=== PATIENT | female | born 1975 | race Caucasian/White ===

== ENCOUNTER 2019-12-22 11:41 | Emergency (ER) | payer OTHER ==
--- NOTE | 2019-12-22 12:17 | ED Physician Documentation ---
PD HPI FOCAL NEURO - Stated complaint Stated Complaint: BLURRED VISION - Chief complaint Chief Complaint: Neuro - History obtained from History obtained from: Patient - Additional information Additional information: 44-year-old woman with history of anxiety, migraines. She was in her usual state of health yesterday, outside in the sun. She first noticed that the right visual field, she thinks in the right eye only was blurry. She is not 100% sure that it was in the right eye only. That lasted about 40 minutes. During that time she developed some word finding difficulty and right arm numbness as well as a panicky sensation. Was followed by a mild headache. She had a mild headache this morning but feels fine now. No history of TIA or stroke. No diabetes or hypertension other than she had gestational diabetes. Review of Systems Ten Systems: 10 systems reviewed and negative Constitutional: denies: Fever Nose: denies: Rhinorrhea / runny nose Cardiac: denies: Chest pain / pressure, Palpitations Respiratory: denies: Dyspnea, Cough PD PAST MEDICAL HISTORY - Allergies Allergies/Adverse Reactions: Allergies Allergy/AdvReac Type Severity Reaction Status Date / Time No Known Drug Allergies Allergy Verified 12/22/19 11:49 PD ED PE NORMAL - Vitals Vital signs reviewed: Yes - General General: Alert and oriented X 3, No acute distress - HEENT HEENT: PERRL, EOMI - Neck Neck: Supple, no meningeal sign, No bony TTP - Cardiac Cardiac: RRR, No murmur - Respiratory Respiratory: No respiratory distress, Clear bilaterally - Abdomen Abdomen: Non tender - Derm Derm: Normal color, Warm and dry - Extremities Extremities: No edema, No calf tenderness / cord - Neuro Neuro: Alert and oriented X 3, client support representative 2-12 intact, No motor deficit, No sensory deficit, Normal speech Eye Opening: Spontaneous Motor: Obeys Commands Verbal: Oriented GCS Score: 15 - Psych Psych: Normal mood, Normal affect NIHSS - Time Time: 12:10 - Level of Consciousness Level of consciousness: (0) Alert, Keenly responsive LOC Questions: (0) Answers both Q's correct LOC Commands: (0) Performs both correctly - Gaze Best Gaze: (0) Normal - Visual Visual: (0) No loss - Facial Palsy Facial Palsy: (0) Normal, symmetrical movement - Motor Arms (both separate) Motor Arm (right): (0) No drift Motor Arm (left): (0) No drift - Motor Legs (both separate) Motor Leg (right): (0) No drift Motor Leg (left): (0) No drift - Limb Ataxia Limb Ataxia: (0) Absent - Sensory Sensory: (0) Normal - Best Language Best Language: (0) No aphasia - Dysarthria Dysarthria: (0) Normal - Extinction and Inattention (formally neg Extinction and inattention: (0) No abnormality - Total Score/Results Total Score/Result: 0 Results - Vitals Vitals: Vital Signs - 24 hr 12/22/19 11:45 Temperature 36.9 C Heart Rate 85 Respiratory 16 Rate Blood Pressure 150/92 H O2 Saturation 100 Oxygen O2 Source Room air - EKG (time done) 1202 Rate: Rate (enter#) (81) Rhythm: NSR Arpin: Normal Intervals: Normal TX QRS: Normal Ischemia: Normal ST segments - Labs Labs: Laboratory Tests 12/22/19 12/22/19 12/22/19 11:57 12:20 12:20 WBC 6.9 RBC 4.60 Hgb 14.5 Hct 41.5 MCV 90.2 MCH 31.5 H MCHC 34.9 RDW 12.0 Plt Count 197 MPV 10.2 Neut # (Auto) 3.6 Lymph # (Auto) 2.7 [place] # (Auto) 0.5 Eos # (Auto) 0.1 Baso # (Auto) 0.0 Absolute Nucleated RBC 0.00 Nucleated RBC % 0.0 Sodium 139 Potassium 3.9 Chloride 101 Carbon Dioxide 25 Anion Gap 13.0 BUN 9 Creatinine 0.7 Estimated GFR (MDRD) 91 Glucose 140 H POC Whole Bld Glucose 137 H Calcium 9.3 Total Bilirubin 0.9 AST 26 ALT 32 Alkaline Phosphatase 54 Total Protein 7.2 Albumin 4.2 Globulin 3.0 Albumin/Globulin Ratio 1.4 Lipase 30 Ur Specific [place] Urine HCG, Qual 12/22/19 12:24 WBC RBC Hgb Hct MCV MCH MCHC RDW Plt Count MPV Neut # (Auto) Lymph # (Auto) [place] # (Auto) Eos # (Auto) Baso # (Auto) Absolute Nucleated RBC Nucleated RBC % Sodium Potassium Chloride Carbon Dioxide Anion Gap BUN Creatinine Estimated GFR (MDRD) Glucose POC Whole Bld Glucose Calcium Total Bilirubin AST ALT Alkaline Phosphatase Total Protein Albumin Globulin Albumin/Globulin Ratio Lipase Ur Specific [place] 1.010 Urine HCG, Qual NEGATIVE PD MEDICAL DECISION MAKING - ED course ED course: Seems most consistent with ocular migraine but it is a little concerning that she thinks it was only in one eye. It does not seem like amaurosis fugax. TIA is considered, less likely given her age and normal CTA of the head and neck. Departure - Departure Disposition: 01 Home, Self Care Clinical Impression: Ocular migraine Condition: Good Record reviewed to determine appropriate education?: Yes Instructions: ED Transient Ischemic Attack, ED Headache Migraine Comments: As discussed, this seems most closely match to an ocular migraine, less likely would be TIA or ocular issue primarily. I do recommend following up with your marketing account manager or certified lactation educator for a dilated eye exam. Take a baby aspirin a day for a month. Return if worsening. Follow-up with your doctor routinely for recheck of mildly elevated blood sugars.
[2019-12-22] MEDS ORDERED: IOVERSOL 320 100 ML VIAL IVP ONE ×2 (12:29→16:00)
[2019-12-22 12:35] LABS: BASOPHILS % (AUTO) 0.6 %; EOSINOPHILS # (AUTO) 0.1 10^3/uL (0.0-0.7); EOSINOPHILS % (AUTO) 1.2 %; HGB - HEMOGLOBIN 14.5 g/dL (12.0-16.0); LYMPHOCYTES # (AUTO) 2.7 10^3/uL (1.5-3.5); LYMPHOCYTES % (AUTO) 38.8 %; MEAN CORPUSCULAR HEMOGLOBIN 31.5 pg (27.0-31.0); MEAN CORPUSCULAR HGB CONC 34.9 g/dL (32.0-36.0); MEAN CORPUSCULAR VOLUME 90.2 fL (81.0-99.0); MEAN PLATELET VOLUME 10.2 fL (7.9-10.8); MONOCYTES # (AUTO) 0.5 10^3/uL (0.0-1.0); NEUTROPHILS # (AUTO) 3.6 10^3/uL (1.5-6.6); PLT - PLATELET COUNT 197 10^3/uL (130-450); WHITE BLOOD COUNT 6.9 x10^3/uL (4.8-10.8)
[2019-12-22 12:39] LABS: HCG UR QUAL NEGATIVE
[2019-12-22 12:49] LABS: ALBUMIN 4.2 g/dL (3.2-5.5); ALBUMIN/GLOBULIN RATIO 1.4 (1.0-2.2); BILIRUBIN,TOTAL 0.9 mg/dL (0.2-1.0); CALCIUM 9.3 mg/dL (8.5-10.3); CREATININE 0.7 mg/dL (0.4-1.0); TOTAL PROTEIN 7.2 g/dL (6.7-8.2)
--- NOTE | 2019-12-22 13:29 | CT Report ---
PROCEDURE: ANGIO HEAD W/WO INDICATIONS: R hemianopsia, and R arm numb, transient CONTRAST: IV CONTRAST: Optiray 320 ml: 80 PO CONTRAST: *NO PO CONTRAST TECHNIQUE: Precontrast 4.5 mm thick angled axial sections acquired from the foramen magnum to the vertex. Afte r the administration of intravenous contrast, 1 mm thick sections acquired through the [place] of [place] is. Postcontrast 4.5 mm thick sections then re-acquired from the foramen magnum to the vertex. 3-di mensional wcontzp-uheyzbhze-kxcowgacaq (MIP) and/or volume rendering reformats were acquired of the c entral intracranial vasculature. For radiation dose reduction, the following was used: automated ex posure control, adjustment of mA and/or kV according to patient size. COMPARISON: Correlation is made with the accompanying neck MRI angiogram, 12/22/2019. FINDINGS: Image quality: Limited by bolus timing with venous contamination. Motion artifact is noted. Anterior circulation: Intracranial internal carotid arteries are normal in size and flow. The flow within the paired anterior cerebral arteries is normal and symmetric. The flow within the middle cer ebral arteries is normal and symmetric. The anterior communicating artery is seen. No aneurysms are seen. Posterior circulation: Visualized portions of the vertebral arteries demonstrate normal caliber, and join to form a normal appearing basilar artery. Flow within the posterior cerebral arteries is norm al and symmetric. No aneurysms are seen. CSF spaces: Ventricles are normal in size and shape. Basal cisterns are patent. No extra-axial flu id collections. Brain: No midline shift. No intracranial bleeds or masses. Gaines-white matter interface appears int act. Skull and face: Calvarium and facial bones appear intact, without suspicious lesions. Sinuses: Visualized sinuses and mastoids are clear. IMPRESSION: No significant intracranial abnormality is seen. To the limits of this study, no significant intracranial arterial abnormality is detected. Reviewed by: Pedro Browne MD on 12/22/2019 12:28 PM [place] Approved by: Pedro Browne MD on 12/22/2019 12:28 PM [facility] Station ID: [id number]
--- NOTE | 2019-12-22 13:32 | CT Report ---
PROCEDURE: ANGIO NECK W INDICATIONS: R hemianopsia and R arm numb, transient CONTRAST: IV CONTRAST: Optiray 320 ml: 80 PO CONTRAST: *NO PO CONTRAST TECHNIQUE: After the administration of intravenous contrast, 1.5 mm axial sections acquired from the aortic arch to the [place] of [place]. Coronal 3-D maximum intensity projection (MIP) and/or volume rendering ref ormats were then performed. For radiation dose reduction, the following was used: automated exposur e control, adjustment of mA and/or kV according to patient size. COMPARISON: Correlation is made with the accompanying brain CT angiogram, 12/22/2019. FINDINGS: Image quality: Mildly limited by bolus timing, with venous contamination. Carotid system: Incidental note is made of a common trunk off of the aorta of the right brachiocepha lic artery and the left common carotid artery (bovine type aortic arch). This is considered to be a d evelopmental variant of typically no clinical consequence. The origins of the common carotid arteri es appear patent. The common carotid arteries demonstrate normal calibers and courses. The bifurcat ion regions appear normal bilaterally. The internal carotid arteries demonstrate normal caliber and course. Posterior circulation: The origins of the vertebral arteries appear patent. The more superior porti ons of the vertebral arteries demonstrate normal course and caliber. They join to form a normal appe aring basilar artery. Soft tissues: Visualized neck soft tissues demonstrate no suspicious abnormalities. The thyroid gla nd is normal in size. Bones: No suspicious bony lesions. Visualized cervical spine appears normally aligned. Moderate l ower cervical spine degenerative change is seen, with moderate disc space narrowing at C5-C6, with po steriorly directed endplate osteophytes and bridging anterior osteophytes. Mild to moderate disc spac e narrowing is seen at C6-C7, with partially bridging anterior osteophytes and posterior directed end plate osteophytes. Milder degenerative changes are seen elsewhere. IMPRESSION: No hemodynamically significant stenosis can be seen within the arteries of the neck. No findings of dissection can be seen. Incidental note is made of: Moderate lower cervical spine degenerative change. Bovine type aortic branching pattern The estimate of stenosis included in the report of the imaging study was calculated using the NASCET method Reviewed by: Pedro Browne MD on 12/22/2019 12:31 PM [facility] Approved by: Pedro Browne MD on 12/22/2019 12:31 PM [facility] Station ID: [id number]
[2019-12-22 13:45] VITALS: BP 129/85
== END 2019-12-22 13:51 | disposition home or self-care (01) ==
LOC: ED 11:41
DX: G43.B0 Ophthalmoplegic migraine, not intractable (principal)
CPT/HCPCS: 36415; 70496; 70498; 80053; 81025; 83690; 85025; 93005; 99284; Q9967; 84484

== ENCOUNTER 2020-02-02 14:51 | Outpatient (CLI) | payer OTHER ==
--- NOTE | 2020-02-03 14:59 | Ultrasound Report ---
PROCEDURE: Pelvic w/Transvaginal INDICATIONS: UTERINE FIBROIDS TECHNIQUE: Real-time scanning was performed of the pelvic organs, with image documentation. Additional endovagi nal scanning was necessary due to incomplete visualization of the adnexal and endometrial structures by transabdominal scanning. COMPARISON: None. FINDINGS: Transabdominal scanning: Limited scanning through the kidneys shows no hydronephrosis. No pathologi c free abdominal or pelvic fluid. Endovaginal scanning: Uterus: Uterus is borderline enlarged in size at 9.7 x 5.3 x 6.6 cm. The endometrium measures 8 mm in combined thickness. There is a right lateral subserosal focus of heterogeneous echogenicity measu ring 8 x 5.4 x 6.0 cm. A similar focus in the left anterior intramural region is identified measuring 2.1 x 1.7 x 1.4 cm. Ovaries: Right ovary measures 2.7 x 2.1 x 2.47 m, by 7.3 cc. Left ovary measures 1.9 x 2.1 x 3.3 cm, volume 7.1 cc. Prominent follicle versus small cyst is noted within the right ovary measuring 1.7 x 1.2 x 1.7 cm. IMPRESSION: 1. Multiple foci of heterogeneous echogenicity within the uterus suggestive of fibroids. Reviewed by: Gilda Mercado MD on 02/03/2020 2:58 PM PST Approved by: Gilda Mercado MD on 02/03/2020 2:58 PM PST Station ID: [id number]
== END 2020-02-02 14:52 | disposition home or self-care (01) ==
LOC: DI 14:51
PROVIDERS: ATTEND Obstetrics & Gynecology
DX: D25.1 Intramural leiomyoma of uterus (principal); D25.2 Subserosal leiomyoma of uterus; N83.201 Unspecified ovarian cyst, right side

== ENCOUNTER 2021-01-18 10:16 | Emergency (ER) | payer BC, OTHER ==
[2021-01-18 10:49] LABS: BILIRUBIN,URINE NEGATIVE (NEGATIVE); GLUCOSE, URINE (UA) NEGATIVE (NEGATIVE); KETONES,URINE (UA) NEGATIVE (NEGATIVE); LEUKOCYTE ESTERASE, URINE NEGATIVE (NEGATIVE); NITRITE,URINE NEGATIVE (NEGATIVE); OCCULT BLOOD,URINE LARGE (NEGATIVE); PROTEIN,URINE NEGATIVE (NEGATIVE); UROBILINOGEN,URINE 0.2 (NORMAL) E.U./dL (NORMAL)
[2021-01-18 10:51] LABS: CLARITY,URINE CLEAR (CLEAR); HCG UR QUAL NEGATIVE
[2021-01-18 10:57] LABS: BASOPHILS # (AUTO) 0.1 10^3/uL (0.0-0.1); BASOPHILS % (AUTO) 0.5 %; EOSINOPHILS % (AUTO) 0.3 %; HCT - HEMATOCRIT 42.6 % (37.0-47.0); HGB - HEMOGLOBIN 14.9 g/dL (12.0-16.0); LYMPHOCYTES # (AUTO) 1.4 10^3/uL (1.5-3.5); LYMPHOCYTES % (AUTO) 11.3 %; MEAN CORPUSCULAR HEMOGLOBIN 31.2 pg (27.0-31.0); MEAN CORPUSCULAR VOLUME 89.3 fL (81.0-99.0); MEAN PLATELET VOLUME 9.8 fL (7.9-10.8); MONOCYTES # (AUTO) 0.7 10^3/uL (0.0-1.0); MONOCYTES % (AUTO) 5.6 %; NEUTROPHILS # (AUTO) 10.4 10^3/uL (1.5-6.6); NEUTROPHILS % (AUTO) 81.8 %; PLT - PLATELET COUNT 206 10^3/uL (130-450); RED BLOOD COUNT 4.77 10^6/uL (4.20-5.40); WHITE BLOOD COUNT 12.7 x10^3/uL (4.8-10.8)
[2021-01-18 11:02] LABS: BACTERIA,URINE Rare /HPF (None Seen); SQUAMOUS EPITHELIAL CELL,UR MOD Squamous (<= Few); WBC,URINE 0-3 /HPF (0-5)
[2021-01-18 11:14] LABS: ALBUMIN 4.2 g/dL (3.2-5.5); ALBUMIN/GLOBULIN RATIO 1.2 (1.0-2.2); BILIRUBIN,TOTAL 1.5 mg/dL (0.2-1.0); CALCIUM 8.9 mg/dL (8.5-10.3); CREATININE 0.8 mg/dL (0.4-1.0); POTASSIUM 3.9 mmol/L (3.5-5.0); TOTAL PROTEIN 7.6 g/dL (6.7-8.2)
[2021-01-18 12:11] VITALS: BP 148/99
--- NOTE | 2021-01-18 12:15 | ED Physician Documentation ---
PD HPI ABD PAIN - Stated complaint Stated Complaint: LOW BACK/ABD PAIN - Chief complaint Chief Complaint: Back Pain - History obtained from History obtained from: Patient - Additional information Additional information: This is an otherwise healthy 45-year-old woman who suspect she may be perimenopausal. She also has fibroids and suspect she has PCOS. She has had irregular periods for quite some time now with decrease in. Frequency. She was told by her stock associate, Dr. Lane, to take progesterone if she goes 90 days without a menses. She took progesterone in August and tolerated it well. She had not had a period since so started progesterone on Sunday, 4 days ago and about 36 hours ago developed severe back and pelvic pain radiating to the vagina like contractions with but more constant. It has tapered down now and actually she is quite comfortable now and declines pain medication. There is no associated bleeding or fluid loss. No urinary complaints except for bladder pressure. No nausea vomiting or fevers. Ultrasound from January of last year reviewed showing fibroid uterus. Review of Systems Constitutional: denies: Fever, Chills Cardiac: denies: Chest pain / pressure, Palpitations Respiratory: denies: Dyspnea, Cough GI: denies: Nausea, Vomiting, Constipation, Diarrhea, Hematemesis, Bloody / black stool : denies: Dysuria, Frequency PD PAST MEDICAL HISTORY - Past Surgical History Past Surgical History: No - Present Medications Home Medications: Ambulatory Orders Medication Instructions Recorded Confirmed HYDROcod/ACETAM 5/325 [Hawkins 5/325] 1 - 2 tab PO Q6H PRN #15 tablet 01/18/21 Medroxyprogesterone Acetate 10 mg PO DAILY 01/18/21 01/18/21 [Provera] - Allergies Allergies/Adverse Reactions: Allergies Allergy/AdvReac Type Severity Reaction Status Date / Time Penicillins Allergy Unknown Verified 01/18/21 10:23 - Social History Does the pt smoke?: No Smoking Status: Never smoker Does the pt drink ETOH?: No Does the pt have substance abuse?: No - Immunizations Immunizations are current?: Yes - POLST Patient has POLST: No PD ED PE NORMAL - Vitals Vital signs reviewed: Yes - General General: Alert and oriented X 3, No acute distress - Abdomen Abdomen: Normal bowel sounds, Soft, Non tender - Back Back: No CVA TTP, No spinal TTP - Derm Derm: Normal color, Warm and dry - Extremities Extremities: No edema, No calf tenderness / cord - Neuro Neuro: Alert and oriented X 3, Normal speech Results - Vitals Vitals: Vital Signs - 24 hr 01/18/21 01/18/21 10:24 12:10 Temperature 36.2 C L 36.2 C L Heart Rate 85 97 Respiratory 18 12 Rate Blood Pressure 131/87 H 148/99 H O2 Saturation 98 98 Oxygen O2 Source Room air - Labs Labs: Laboratory Tests 01/18/21 01/18/21 01/18/21 10:37 10:53 10:53 WBC 12.7 H RBC 4.77 Hgb 14.9 Hct 42.6 MCV 89.3 MCH 31.2 H MCHC 35.0 RDW 12.0 Plt Count 206 MPV 9.8 Neut # (Auto) 10.4 H Lymph # (Auto) 1.4 L [place] # (Auto) 0.7 Eos # (Auto) 0.0 Baso # (Auto) 0.1 Absolute Nucleated RBC 0.00 Nucleated RBC % 0.0 Sodium 135 Potassium 3.9 Chloride 102 Carbon Dioxide 22 Anion Gap 11.0 BUN 18 Creatinine 0.8 Estimated GFR (MDRD) 78 L Glucose 162 H Calcium 8.9 Total Bilirubin 1.5 H AST 22 ALT 21 Alkaline Phosphatase 53 Total Protein 7.6 Albumin 4.2 Globulin 3.4 Albumin/Globulin Ratio 1.2 Lipase 26 Urine Color YELLOW Urine Clarity CLEAR Urine pH 6.0 Ur Specific [place] 1.010 Urine Protein NEGATIVE Urine Glucose (UA) NEGATIVE Urine Ketones NEGATIVE Urine Occult Blood LARGE H Urine Nitrite NEGATIVE Urine Bilirubin NEGATIVE Urine Urobilinogen 0.2 (NORMAL) Ur Leukocyte Esterase NEGATIVE Urine RBC 6-10 H Urine WBC 0-3 Ur Squamous Epith Cells MOD Squamous H Urine Bacteria Rare Ur Microscopic Review INDICATED Urine Culture Comments NOT INDICATED Urine HCG, Qual NEGATIVE PD MEDICAL DECISION MAKING - ED course ED course: 45-year-old woman who was taking progesterone on the advice of her stock associate and developed severe pelvic pain, much better on arrival here and declined pain medication here. Benign exam. Case discussed by phone with Dr. Lane who felt that the patient did need a repeat ultrasound albeit not urgently. Discussed with patient happy to do it while she is in the ER versus at a later date and she can schedule outpatient and she opted for the latter and she was given a written order to schedule a pelvis with transvaginal, Doppler if indicated to be scheduled and to follow-up with Dr.'s Lane after that. Also wrote on the order to have the results copy to Dr. Lnae. She did request a prescription in case the pain got worse again. I am prescribing a short course of short-acting opioid pain medication for this patient. I have reviewed the patients DELIVERY AGENT and no concerning findings were noted. I have discussed that the opioids are for short term therapy only, and will not be refilled from the ED. Departure - Departure Disposition: Home, Self Care Clinical Impression: Pelvic pain, Menstruation decrease Condition: Good Record reviewed to determine appropriate education?: Yes Instructions: ED Pelvic Pain [facility] Follow-Up: Stephanie Lane MD [Primary Care Provider] - Prescriptions: HYDROcod/ACETAM 5/325 [Hawkins 5/325] 1 - 2 tab PO Q6H PRN #15 tablet PRN Reason: Pain Comments: If pain returns, you can take ibuprofen along with the prescription I am sending into [facility] in [place]. Return for new or worsening symptoms. Otherwise as discussed Dr. Lane feels you do need a repeat ultrasound but not urgently, I am writing an order for this and follow-up with her after that is complete for further evaluation and treatment. I am prescribing a short course of narcotic pain medication for you. These are potentially dangerous and addictive medications that should be used carefully. These medications may constipate you. Take an ynrw-yad-uzhulgx stool softener (docusate) twice daily with plenty of water while taking these medications. If you go 24 hours without a bowel movement, take stvs-cuj-fvhfzek miralax, per package instructions. Do not drink or drive while taking these medications. If you received narcotic or sedating medications while in the emergency department, do not drive for 24 hours. Store this medication in a safe, secure place and out of reach of children. It is a violation of federal law to give or sell this medication to another person or to use in a manner other than prescribed. The ED will not refill narcotic prescriptions, including prescriptions lost or stolen. To dispose of unwanted medications: 1. [facility] at [address] in [place] has a medication drop box. They accept prescription medications (in pill form) Sunday through Sunday 9:00 a.m. to 5:00 p.m. 2. The [facility] [employer] accepts prescription medications (in pill form only) for disposal year round. Call for more information. 3. Contact the [facility] for the next [facility] sponsored prescription drug collection event. , [phone], or [phone]; Note that many narcotic pain relievers also contain Tylenol/acetaminophen. Please ensure that your total dose of acetaminophen from all sources does not exceed 3 g (3000 mg) per day.
== END 2021-01-18 12:39 | disposition home or self-care (01) ==
LOC: ED 10:16
DX: R10.2 Pelvic and perineal pain (principal); N91.5 Oligomenorrhea, unspecified; D25.9 Leiomyoma of uterus, unspecified
CPT/HCPCS: 36415; 80053; 81001; 81003; 81025; 83690; 85025; 87086; 99283

== ENCOUNTER 2021-02-02 15:09 | Outpatient (CLI) | payer BC ==
--- NOTE | 2021-02-02 16:55 | Ultrasound Report ---
PROCEDURE: Pelvic w/Transvaginal INDICATIONS: PELVIC PAIN,FIOROIDS TECHNIQUE: Real-time scanning was performed of the pelvic organs, with image documentation. Additional endovagi nal scanning was necessary due to incomplete visualization of the adnexal and endometrial structures by transabdominal scanning. COMPARISON: Pelvic ultrasound 02/02/2020. FINDINGS: No pathologic free abdominal or pelvic fluid. Uterus: Uterus measures 11.1 x 5.5 x 7 cm. The uterus is anteverted. The myometrium appears heteroge neous due to presence of fibroids. The endometrium measures 7 mm in combined thickness. Nabothian cy sts are seen in the cervix. A right lateral submucosal/intramural fibroid measures 8.2 x 5.7 x 6.2 cm, previously measuring 8 x 5 .4 x 6 cm. The previously seen left anterior intramural fibroid is not visualized on the current exam . Ovaries: The right ovary measures 2.6 x 1.3 x 2.8 cm (5 cc). The left ovary measures 4.4 x 1.7 x 4.2 cm (16 cc). Bilateral ovarian follicles are seen measuring up to 2.1 cm on the right and 2.4 cm on t he left. IMPRESSION: 1.Large right lateral intramural and subserosal uterine fibroid measures up to 3.2 cm, minimally incr eased in size when compared to the prior ultrasound. 2.Previously seen left-sided uterine fibroid is not visualized on the current exam. 3.Uterus is enlarged by fibroids. Reviewed by: Nathaniel Cardoza MD on 02/02/2021 4:54 PM PST Approved by: Nathaniel Cardoza MD on 02/02/2021 4:54 PM PST Station ID: [id number]
== END 2021-02-02 15:10 | disposition home or self-care (01) ==
LOC: DI 15:09
PROVIDERS: ATTEND Emergency Medicine
DX: D25.1 Intramural leiomyoma of uterus (principal); D25.2 Subserosal leiomyoma of uterus

== ENCOUNTER 2022-12-19 10:36 | Outpatient (CLI) | payer BC ==
[2022-12-19 11:07] LABS: CHOL/HDL RATIO 3.9 (<4.4); CHOLESTEROL 185 mg/dL; HDL CHOLESTEROL 47 mg/dL; LDL CHOLESTEROL,CALCULATED 101 mg/dL; LDL/HDL RATIO 2.1 (<4.4); TRIGLYCERIDES 183 mg/dL (48-352); VLDL CHOLESTEROL 37 mg/dL
[2022-12-19 11:27] LABS: THYROID STIMULATING HORMONE 1.25 uIU/mL (0.34-5.60)
[2022-12-19 12:33] LABS: ESTIMATED AVERAGE GLUCOSE 111 mg/dL (70-100); HEMOGLOBIN A1c% 5.5 % (4.27-6.07)
== END 2022-12-19 10:37 | disposition home or self-care (01) ==
LOC: LAB 10:36
PROVIDERS: ATTEND Obstetrics & Gynecology
DX: Z00.00 Encounter for general adult medical examination without abnormal findings (principal)
CPT/HCPCS: 36415; 80061; 83036; 83721; 84443